=== PATIENT | female | born 1965 | race Caucasian/White ===

== ENCOUNTER 2018-09-18 10:03 | Emergency (ER) | payer OTHER ==
[~2018-09-18] VITALS: Ht 165.1 cm; Wt 95.2 kg
--- OUTSIDE RECORDS SUMMARY | ~2018-09-18 | XMS | Clinical Summary ---
Demographics + + + | Address | [address] | | | [place] [address] | + + + | Home Phone | | + + + | Preferred Language | Unknown | + + + | Marital Status | Single | + + + | Rastafari Affiliation | Unknown | + + + | Race | Unknown | + + + | Ethnic Group | Unknown | + + + Author + + + | Author | [facility] | + + + | Organization | [facility] | + + + | Address | Unknown | + + + | Phone | Unavailable | + + + Support + + + + + | Name | Relationship | Address | Phone | + + + + + | Michelle Bentley | ECON | [address] | | | | | [place] | | | | | [id number] | | + + + + + Care Team Providers + +------+ + | Care Hatch Supervisor Name | Role | Phone | + +------+ + | Dr. Deanna | PP | Unavailable | + +------+ + Allergies Not on File Current Medications Not on file Active Problems Not on file Social History + +-------+ +--------+------+ | Tobacco Use | Types | Packs/Day | Years | Date | | | | | Used | | + +-------+ +--------+------+ | Never Assessed | | | | | + +-------+ +--------+------+ + + + | Sex Assigned at | Date Recorded | | | | + + + | Not on file | | + + + Plan of Treatment Not on file Results Not on filefrom Last 3 Months"
--- OUTSIDE RECORDS SUMMARY | ~2018-09-18 | XMS | Clinical Summary ---
Demographics + + + | Address | [address] | | | [place] [address] | + + + | Home Phone | | + + + | Preferred Language | Unknown | + + + | Marital Status | Single | + + + | Worship Affiliation | Unknown | + + + | Race | Unknown | + + + | Ethnic Group | Unknown | + + + Author + + + | Author | [facility] | + + + | Organization | [facility] | + + + | Address | Unknown | + + + | Phone | Unavailable | + + + Support + + + + + | Name | Relationship | Address | Phone | + + + + + | Michelle Bentley | ECON | [address] | | | | | [place] | | | | | [phone] | | + + + + + Care Team Providers + +------+ + | Care Marine Insulator Name | Role | Phone | + [...]
== END 2018-09-18 11:08 | disposition home or self-care (01) ==
LOC: ED 10:03
DX: J06.9 Acute upper respiratory infection, unspecified (principal); E11.9 Type 2 diabetes mellitus without complications; F41.9 Anxiety disorder, unspecified; I10 Essential (primary) hypertension; Z87.891 Personal history of nicotine dependence; Z95.5 Presence of coronary angioplasty implant and graft
CPT/HCPCS: 99283

== ENCOUNTER 2018-12-30 11:33 | Emergency (ER) | payer OTHER ==
[~2018-12-30] VITALS: Ht 165.1 cm; Wt 95.2 kg
== END 2018-12-30 12:18 | disposition home or self-care (01) ==
LOC: ED 11:33
PROC: 0XQMXZZ Repair Left Thumb, External Approach (ICD-10-PCS; principal; 2018-12-30)
DX: S61.012A Laceration without foreign body of left thumb without damage to nail, initial encounter (principal); I10 Essential (primary) hypertension; E11.9 Type 2 diabetes mellitus without complications; F17.200 Nicotine dependence, unspecified, uncomplicated; Z95.5 Presence of coronary angioplasty implant and graft; Z90.49 Acquired absence of other specified parts of digestive tract; W26.0XXA Contact with knife, initial encounter
CPT/HCPCS: 12002; 99282-25

== ENCOUNTER 2022-06-22 10:11 | Emergency (ER) | payer OTHER ==
[~2022-06-22] VITALS: Ht 165.1 cm; Wt 97.5 kg
[~2022-06-22 10:11] MED LIST: ASPIRIN EC81 MG PO; ATORVASTATIN CA40 MG PO; BENZONATATE200 MG PO; HYDROXYZINE PAM50 MG PO; LANTUS100 UNITS/ SUB-Q; LISINOPRIL2.5 MG PO; METFORMIN HCL1000 MG PO; NAPROXEN500 MG PO; NEURONTIN300 MG PO; NITROSTAT0.4 MG SL; OMEPRAZOLE20 MG PO; PROVERA10 MG PO; VENLAFAXINE HC150 MG PO
[2022-06-22] MEDS ORDERED: DOXYCYCLINE HY100 MG PO (10:34)
[2022-06-22] MEDS ORDERED: VENTOLIN HFA18 GM INH (10:34)
--- NOTE | 2022-06-22 16:52 | EKG ---
[facility] [address] [facility] [place] [address] Signed Normal sinus rhythm Low voltage QRS Borderline ECG No previous ECGs available Confirmed by Yohana Bañuelos MD () on 06/22/2022 4:51:47 PM Electronically Signed By: YOHANA BAÑUELOS MD 06/22/221651 PATIENT NAME: LESLY CHRISTY WENDI Electrocardiogram DATE OF : 65 PHYSICIAN: YOHANA BAÑUELOS MD REPORT #: [id number] REPORT IS CONFIDENTIAL AND NOT TO BE RELEASED WITHOUT AUTHORIZATION
== END 2022-06-22 11:12 | disposition home or self-care (01) ==
LOC: ED 10:11
DX: J42 Unspecified chronic bronchitis (principal); E11.9 Type 2 diabetes mellitus without complications; I10 Essential (primary) hypertension; F17.200 Nicotine dependence, unspecified, uncomplicated; Z88.5 Allergy status to narcotic agent; Z79.899 Other long term (current) drug therapy; Z79.82 Long term (current) use of aspirin; Z79.4 Long term (current) use of insulin
CPT/HCPCS: 71045; 93005; 93010; 99285-25